=== PATIENT | male | born 1990 | race Caucasian/White ===

== ENCOUNTER 2017-12-14 20:22 | Inpatient (IN) | payer BC ==
[2017-12-14] MEDS ORDERED: ONDANSETRON 4 MG/2 ML VIAL IVP STA (20:47)
[2017-12-14] MEDS ORDERED: SODIUM CHLORIDE 0.9% 1,000 ML IV STA (20:47)
[2017-12-14] MEDS ORDERED: PANTOPRAZOLE 40 MG/10 ML VIAL IVP ONE (20:48)
[2017-12-14 21:06] LABS: Basophils # (A) 0.1 k/uL (0-0.2); Basophils % (A) 0 %; Eosinophils # (A) 0.3 k/uL (0-0.7); Eosinophils % (A) 3 %; HCT 42.5 % (39.0-53.0); Lymphocytes % (A) 26 %; MCH 29.3 pg (25.0-35.0); MCHC 32.9 g/dL (31.0-37.0); MCV 89.1 fL (80.0-100.0); Mean Platelet Volume 6.7; Monocytes # (A) 0.6 k/uL (0-1.0); Monocytes % (A) 5 %; Neutrophils # (A) 7.4 k/uL (1.3-7.7); Neutrophils % (A) 64 %; Platelet Count 293 k/uL (150-450); RBC 4.77 m/uL (4.30-5.90); RDW 13.5 % (11.5-15.5); WBC 11.6 k/uL (3.8-10.6)
[2017-12-14 21:20] LABS: ALT 34 U/L (21-72); AST 26 U/L (17-59); Albumin 4.2 g/dL (3.5-5.0); Alkaline Phosphatase 49 U/L (38-126); Anion Gap 11 mmol/L; Blood Urea Nitrogen 28 mg/dL (9-20); Calcium 9.4 mg/dL (8.4-10.2); Carbon Dioxide 23 mmol/L (22-30); Chloride 109 mmol/L (98-107); Glucose 133 mg/dL (74-99); Lipase 196 U/L (23-300); Potassium 4.5 mmol/L (3.5-5.1); Sodium 143 mmol/L (137-145); Total Protein 6.6 g/dL (6.3-8.2)
[2017-12-14 21:21] LABS: INR 1.1 (<1.2); Prothrombin Time 10.9 sec (9.0-12.0)
[2017-12-14 21:26] LABS: Partial Thromboplastin Time 19.6 sec (22.0-30.0)
--- NOTE | 2017-12-14 21:52 | ED ---
General Adult HPI - General Chief complaint: Nausea/Vomiting/Diarrhea Stated complaint: vomiting/left arm pain Time Seen by Provider: 12/14/17 20:47 Source: patient Mode of arrival: ambulatory Limitations: no limitations - History of Present Illness Initial comments: Fernando is a previously healthy 27-year-old male who presents the emergency department today for evaluation of 3 episodes of dark black stool and 3 episodes of dark vomitus. Patient reports that he was in his usual state of health throughout the day today, he ate a hamburger for lunch and then was taking a nap when he woke up with a sudden urge to have a bowel movement. Patient reports that he had a bowel movement that he noted was very dark in color, he subsequently became nauseated and vomited he also noted this vomitus was very dark and coffee ground like. Patient reports that he has had 3 dark stools and 3 episodes of dark vomitus since onset. Patient denies any abdominal pain, lightheadedness, palpitations, near syncope. Patient has no history of any GI pathology. He is not on any anticoagulant medication. Patient does report that he takes aspirin most days of the week, he states that he takes one to 2 pills of aspirin for headache. Patient has no history of ulcers or gastritis in the past. He has never been seen by GI or had endoscopy or colonoscopy. He has no known family history of any liver disease, bowel disease or clotting disease. - Related Data Home Medications Medication Instructions Recorded Confirmed Aspirin [Adult Low Dose Aspirin EC] 81 mg PO DAILY 12/14/17 12/14/17 Allergies Allergy/AdvReac Type Severity Reaction Status Date / Time No Known Allergies Allergy Verified 12/14/17 20:44 Review of Systems ROS Statement: Those systems with pertinent positive or pertinent negative responses have been documented in the HPI. ROS Other: All systems not noted in ROS Statement are negative. Past Medical History Past Medical History: No Reported History History of Any Multi-Drug Resistant Organisms: None Reported Past Surgical History: No Surgical Hx Reported Past Psychological History: No Psychological Hx Reported Smoking Status: Never smoker Past Alcohol Use History: None Reported Past Drug Use History: None Reported General Exam - General Exam Comments Initial Comments: GENERAL: Patient is well-developed and well-nourished. Patient is nontoxic and well- hydrated and is in mild distress, patient is anxious appearing and diaphoretic. HENT: Normocephalic, Atraumatic. Neck is soft and supple. No significant lymphadenopathy is noted. Oropharynx is clear. Moist mucous membranes. Neck has full range of motion without eliciting any pain. EYES: The sclera were anicteric and conjunctiva were pink and moist. Extraocular movements were intact and pupils were equal round and reactive to light. Eyelids were unremarkable. PULMONARY: Unlabored respirations. Good breath sounds bilaterally. No audible rales rhonchi or wheezing was noted. CARDIOVASCULAR: Tachycardia, regular, no murmurs rubs or gallops ABDOMEN: Soft and nontender with normal bowel sounds. SKIN: Skin is clear with no lesions or rashes and otherwise unremarkable. NEUROLOGIC: Patient is alert and oriented x3. Cranial nerves II through XII are grossly intact. Motor and sensory are also intact. Normal speech, volume and content. Symmetrical smile. MUSCULOSKELETAL: Normal extremities with adequate strength and full range of motion. No lower extremity swelling or edema. No calf tenderness. LYMPHATICS: No significant lymphadenopathy is noted PSYCHIATRIC: Normal psychiatric evaluation. Limitations: no limitations Limitations: no limitations Course Vital Signs 12/14/17 12/14/17 20:29 21:29 Temperature 98.3 F 98.7 F Pulse Rate 121 H 104 H Respiratory 24 18 Rate Blood Pressure 131/82 136/74 O2 Sat by Pulse 98 98 Oximetry EKG Findings - EKG Comments: EKG Findings:: EKG obtained at 2051, rate is 112, rhythm is sinus tachycardia, normal axis, normal intervals, no acute ST elevations or depressions. Acute ischemia or infarction. Medical Decision Making - Medical Decision Making The patient was seen and evaluated, history is obtained from the patient as well as mother bedside with no past medical history, does not see a doctor, no complaints prior to a sudden onset of dark vomiting and dark stools today. Patient had 3 episodes of each. On initial exam the patient appears quite anxious, he is diaphoretic and states that he has never been to the hospital before and is very scared. In addition the patient is noted to be mildly tachycardic. Labs and imaging were ordered Protonix IV fluids were ordered I return to the room to reevaluate the patient, I noted that his heart rate had improved to the low 90s, when I advised the patient that I needed to do a rectal exam headache and became very anxious, began sweating and his heart rate increased to the 120s. Mom at bedside states the patient has significant anxiety regarding medical care Rectal exam reveals a normal rectum with melanotic stools Guaiac was positive Labs reveal mild leukocytosis this is likely reactive, hemoglobin is stable at 14, BUN is mildly elevated which is consistent with an upper GI bleed This is a patient who takes aspirin almost daily, is having an upper GI bleed and some tachycardia. At this time I feel the patient warrants admission to the hospital. Admission orders with a consult to gastroenterology and twice a day Protonix were ordered. - Lab Data Result diagrams: 12/14/17 20:50 12/14/17 20:50 Lab Results 12/14/17 12/14/17 12/14/17 Range/Units 20:50 20:50 20:50 WBC 11.6 H (3.8-10.6) k/uL RBC 4.77 (4.30-5.90) m/uL Hgb 14.0 (13.0-17.5) gm/dL Hct 42.5 (39.0-53.0) % MCV 89.1 (80.0-100.0) fL MCH 29.3 (25.0-35.0) pg MCHC 32.9 (31.0-37.0) g/dL RDW 13.5 (11.5-15.5) % Plt Count 293 (150-450) k/uL Neutrophils % 64 % Lymphocytes % 26 % Monocytes % 5 % Eosinophils % 3 % Basophils % 0 % Neutrophils # 7.4 (1.3-7.7) k/uL Lymphocytes # 3.0 (1.0-4.8) k/uL Monocytes # 0.6 (0-1.0) k/uL Eosinophils # 0.3 (0-0.7) k/uL Basophils # 0.1 (0-0.2) k/uL PT 10.9 (9.0-12.0) sec INR 1.1 (<1.2) APTT 19.6 L (22.0-30.0) sec Sodium 143 (137-145) mmol/L Potassium 4.5 (3.5-5.1) mmol/L Chloride 109 H (98-107) mmol/L Carbon Dioxide 23 (22-30) mmol/L Anion Gap 11 mmol/L BUN 28 H (9-20) mg/dL Creatinine 1.00 (0.66-1.25) mg/dL Est GFR (CKD-EPI)AfAm >90 (>60 ml/min/1.73 sqM) Est GFR (CKD-EPI)NonAf >90 (>60 ml/min/1.73 sqM) Glucose 133 H (74-99) mg/dL Calcium 9.4 (8.4-10.2) mg/dL Total Bilirubin 1.0 (0.2-1.3) mg/dL AST 26 (17-59) U/L ALT 34 (21-72) U/L Alkaline Phosphatase 49 (38-126) U/L Total Protein 6.6 (6.3-8.2) g/dL Albumin 4.2 (3.5-5.0) g/dL Lipase 196 (23-300) U/L Urine Color Urine Appearance (Clear) Urine pH (5.0-8.0) Ur Specific [place] (1.001-1.035) Urine Protein (Negative) Urine Glucose (UA) (Negative) Urine Ketones (Negative) Urine Blood (Negative) Urine Nitrite (Negative) Urine Bilirubin (Negative) Urine Urobilinogen (<2.0) mg/dL Ur Leukocyte Esterase (Negative) Stool Occult Blood (Negative) 12/14/17 12/14/17 Range/Units 21:45 21:59 WBC (3.8-10.6) k/uL RBC (4.30-5.90) m/uL Hgb (13.0-17.5) gm/dL Hct (39.0-53.0) % MCV (80.0-100.0) fL MCH (25.0-35.0) pg MCHC (31.0-37.0) g/dL RDW (11.5-15.5) % Plt Count (150-450) k/uL Neutrophils % % Lymphocytes % % Monocytes % % Eosinophils % % Basophils % % Neutrophils # (1.3-7.7) k/uL Lymphocytes # (1.0-4.8) k/uL Monocytes # (0-1.0) k/uL Eosinophils # (0-0.7) k/uL Basophils # (0-0.2) k/uL PT (9.0-12.0) sec INR (<1.2) APTT (22.0-30.0) sec Sodium (137-145) mmol/L Potassium (3.5-5.1) mmol/L Chloride (98-107) mmol/L Carbon Dioxide (22-30) mmol/L Anion Gap mmol/L BUN (9-20) mg/dL Creatinine (0.66-1.25) mg/dL Est GFR (CKD-EPI)AfAm (>60 ml/min/1.73 sqM) Est GFR (CKD-EPI)NonAf (>60 ml/min/1.73 sqM) Glucose (74-99) mg/dL Calcium (8.4-10.2) mg/dL Total Bilirubin (0.2-1.3) mg/dL AST (17-59) U/L ALT (21-72) U/L Alkaline Phosphatase (38-126) U/L Total Protein (6.3-8.2) g/dL Albumin (3.5-5.0) g/dL Lipase (23-300) U/L Urine Color Yellow Urine Appearance Clear (Clear) Urine pH 7.5 (5.0-8.0) Ur Specific [place] 1.022 (1.001-1.035) Urine Protein Trace H (Negative) Urine Glucose (UA) Negative (Negative) Urine Ketones 2+ H (Negative) Urine Blood Negative (Negative) Urine Nitrite Negative (Negative) Urine Bilirubin Negative (Negative) Urine Urobilinogen <2.0 (<2.0) mg/dL Ur Leukocyte Esterase Negative (Negative) Stool Occult Blood Positive (Negative) Disposition Clinical Impression: Melena, Tachycardia Disposition: ADMITTED IP TO [facility] Referrals: None,Stated [Primary Care Provider] - 1-2 days Decision Time: 22:45
[2017-12-14 21:53] LABS: Appearance,Urine Clear (Clear); Bilirubin,Urine Negative (Negative); Blood,Urine Negative (Negative); Color,Urine Yellow; Glucose,Urine (UA) Negative (Negative); Ketones,Urine 2+ (Negative); Leukocyte Esterase,Urine Negative (Negative); Nitrite,Urine Negative (Negative); PH, Urine 7.5 (5.0-8.0); Protein,Urine Trace (Negative); Specific Gravity,Urine 1.022 (1.001-1.035); Urobilinogen,Urine <2.0 mg/dL (<2.0)
--- NOTE | 2017-12-14 21:53 | XR ---
EXAMINATION TYPE: XR KUB DATE OF EXAM: 12/14/2017 COMPARISON: NONE HISTORY: Vomiting TECHNIQUE: 2 views FINDINGS: Bowel gas pattern is normal. There is no sign of intestinal obstruction or pneumoperitoneum . Fecal pattern is normal. There are no pathologic calcifications. IMPRESSION: Nonacute abdomen.
[2017-12-14] MEDS ORDERED: ONDANSETRON 4 MG/2 ML VIAL IVP PRN (22:32)
[2017-12-14] MEDS ORDERED: NALOXONE 0.4 MG/ML 1 ML VIAL IV PRN (22:32)
[2017-12-14] MEDS: SODIUM CHLORIDE 0.9% 1,000 ML IV SCH (23:31)
[2017-12-14] MEDS ORDERED: LORazepam 2 MG/ML INJ IV PRN (23:40)
[2017-12-15 00:11] VITALS: BMI 35.0
[2017-12-15] MEDS: SODIUM CHLORIDE 0.9% 1,000 ML IV SCH ×3 (08:00→19:40)
[2017-12-15 08:22] LABS: Basophils % (A) 1 %; Eosinophils # (A) 0.1 k/uL (0-0.7); Eosinophils % (A) 1 %; HCT 36.7 % (39.0-53.0); HGB 12.2 gm/dL (13.0-17.5); Lymphocytes # (A) 1.5 k/uL (1.0-4.8); Lymphocytes % (A) 22 %; MCH 29.6 pg (25.0-35.0); MCHC 33.1 g/dL (31.0-37.0); MCV 89.5 fL (80.0-100.0); Mean Platelet Volume 7.1; Monocytes # (A) 0.5 k/uL (0-1.0); Monocytes % (A) 7 %; Neutrophils # (A) 4.5 k/uL (1.3-7.7); Neutrophils % (A) 68 %; Platelet Count 243 k/uL (150-450); RDW 13.4 % (11.5-15.5); WBC 6.6 k/uL (3.8-10.6)
[2017-12-15 08:36] LABS: ALT 30 U/L (21-72); AST 19 U/L (17-59); Albumin 3.4 g/dL (3.5-5.0); Alkaline Phosphatase 43 U/L (38-126); Anion Gap 7 mmol/L; Blood Urea Nitrogen 28 mg/dL (9-20); Calcium 8.5 mg/dL (8.4-10.2); Carbon Dioxide 25 mmol/L (22-30); Chloride 109 mmol/L (98-107); Glucose 88 mg/dL (74-99); Potassium 4.1 mmol/L (3.5-5.1); Sodium 141 mmol/L (137-145); Total Protein 5.6 g/dL (6.3-8.2)
[2017-12-15] MEDS: PANTOPRAZOLE 40 MG/10 ML VIAL IVP SCH ×2 (11:50→20:45)
--- NOTE | 2017-12-15 14:45 | P.HPIM ---
History of Present Illness H&P Date: 12/15/17 Chief Complaint: Dark-colored stools Patient is a 37-year-old male without significant past medical history came to the hospital with complaints of black-colored stools and also dark-colored vomitus past 1 day. Patient says that he had 3 episodes since yesterday. Patient reports that he was in his usual state of health throughout the day today, he ate a hamburger for lunch and then was taking a nap when he woke up with a sudden urge to have a bowel movement. Patient reports that he had a bowel movement that he noted was very dark in color, he subsequently became nauseated and vomited he also noted this vomitus was very dark and coffee ground like. Patient denies any abdominal pain, lightheadedness, palpitations, near syncope. Patient does have dizziness. Patient does report that he takes aspirin most days of the week, he states that he takes one to 2 pills of aspirin for headache. Denied any other over-the- counter pain medication use. Patient has no history of ulcers or gastritis in the past. He has never been seen by GI or had endoscopy or colonoscopy. He has no known family history of any liver disease, bowel disease or clotting disease. Hemoglobin was 14.0 on admission dropped to 12.2 today. Patient is tachycardic and FOBT positive on admission. Review of Systems Constitutional: Patient denies any fever or chills . No generalized weakness or weight loss. Abdomen: Denied any nausea. 3 episodes of vomiting. Dark-colored stools. No abdominal pain. Cardiovascular: Patient denies any chest pain or short of breath no palpitations. Respiratory: patient denied any cough is from production. No shortness of breath Neurologic: Patient denied any numbness or tingling headache. Dizziness. Musculoskeletal: Patient denies any complaints of joint swelling or deformity. Skin: Negative Psychiatric: Negative Endocrine: No heat or cold intolerance. No recent weight gain. Genitourinary: No dysuria or hematuria. All other 14 point ROS negative except the above Past Medical History Past Medical History: No Reported History History of Any Multi-Drug Resistant Organisms: None Reported Past Surgical History: No Surgical Hx Reported Additional Past Surgical History / Comment(s): Plastic surgery to R ear because of a dog bite, about 26 years ago. Past Anesthesia/Blood Transfusion Reactions: Unable to Obtain Past Psychological History: No Psychological Hx Reported Smoking Status: Never smoker Past Alcohol Use History: Rare Additional Past Alcohol Use History / Comment(s): Patient states he occassionaly has a drink. Past Drug Use History: None Reported - Past Family History Mother Family Medical History: Diabetes Mellitus Additional Family Medical History / Comment(s): Tubal, knee, gallbladder and foot surgery. Grandfather Family Medical History: Cancer Additional Family Medical History / Comment(s): Colon cancer Grandmother Family Medical History: CVA/TIA Additional Family Medical History / Comment(s): 2 strokes Medications and Allergies Home Medications Medication Instructions Recorded Confirmed Type Aspirin [Adult Low Dose Aspirin EC] 81 mg PO DAILY 12/14/17 12/14/17 History Allergies Allergy/AdvReac Type Severity Reaction Status Date / Time No Known Allergies Allergy Verified 12/14/17 20:44 Physical Exam Vitals: Vital Signs Temp Pulse Pulse Resp BP BP Pulse Ox 12/15/17 06:59 98.9 F 102 H 14 130/68 96 12/15/17 04:37 98.2 F 101 H 15 109/74 99 12/14/17 23:43 98.1 F 93 16 142/67 99 12/14/17 23:35 98.6 F 100 18 120/65 96 12/14/17 21:29 98.7 F 104 H 18 136/74 98 12/14/17 20:29 98.3 F 121 H 24 131/82 98 Intake and Output 12/14/17 12/15/17 12/15/17 22:59 06:59 14:59 Intake Total 750 Balance 750 Intake: Intake, IV Titration 750 Amount Sodium Chloride 0.9% 1, 750 000 ml @ 125 mls/hr IV . Q8H [facility] Rx#:[id number] Other: Voiding Method Toilet # Voids 1 Weight 102.058 kg 104.5 kg PHYSICAL EXAMINATION: Patient is lying in the bed comfortably, no acute distress, awake alert and oriented.. HEENT: Normocephalic. Neck is supple. Pupils reactive. Nostrils clear. Oral cavity is moist. Ears reveal no drainage. Neck reveals no JVD, carotid bruits, or thyromegaly. CHEST EXAMINATION: Trachea is central. Symmetrical expansion. Lung villalta clear to auscultation and percussion. CARDIAC: Normal S1, S2 with no gallops. No murmurs ABDOMEN: Soft. Bowel sounds normal. No organomegaly. No abdominal bruits. Extremities: reveal no edema. No clubbing or cyanosis Neurologically awake, alert, oriented x3 with well-coordinated movements. No focal deficits noted Skin: No rash or skin lesions. Psychiatric: Coperative. Nonsuicidal Musculoskeletal: No joint swelling or deformity. Normal range of motion. Results CBC & Chem 7: 12/15/17 07:33 12/15/17 07:33 Labs: Abnormal Lab Results - Last 24 Hours (Table) 12/14/17 12/14/17 12/14/17 Range/Units 20:50 20:50 20:50 WBC 11.6 H (3.8-10.6) k/uL RBC (4.30-5.90) m/uL Hgb (13.0-17.5) gm/dL Hct (39.0-53.0) % APTT 19.6 L (22.0-30.0) sec Chloride 109 H (98-107) mmol/L BUN 28 H (9-20) mg/dL Glucose 133 H (74-99) mg/dL Total Protein (6.3-8.2) g/dL Albumin (3.5-5.0) g/dL Urine Protein (Negative) Urine Ketones (Negative) 12/14/17 12/15/17 12/15/17 Range/Units 21:45 07:33 07:33 WBC (3.8-10.6) k/uL RBC 4.10 L (4.30-5.90) m/uL Hgb 12.2 L (13.0-17.5) gm/dL Hct 36.7 L (39.0-53.0) % APTT (22.0-30.0) sec Chloride 109 H (98-107) mmol/L BUN 28 H (9-20) mg/dL Glucose (74-99) mg/dL Total Protein 5.6 L (6.3-8.2) g/dL Albumin 3.4 L (3.5-5.0) g/dL Urine Protein Trace H (Negative) Urine Ketones 2+ H (Negative) Thrombosis Risk Factor Assmnt - DVT/VTE Prophylaxis DVT/VTE Prophylaxis: Mechanical Prophylaxis ordered - Choose All That Apply Any of the Below Risk Factors Present?: No Assessment and Plan Assessment: Dark-colored stools due to acute GI bleed. Possibly upper GI Acute blood loss anemia Dizziness Aspirin intake for headache DVT prophylaxis with SCDs Plan: Patient will be continued on Protonix IV twice daily and IV fluids. Continue with nothing by mouth and GI was consulted. Patient may need EGD for further evaluate. Continue to follow closely. Time with Patient: Greater than 30
--- NOTE | 2017-12-15 23:46 | P.CONS ---
History of Present Illness - Reason for Consult Consult date: 12/15/17 Coffee-ground emesis Requesting physician: Alvarez Triplett - Chief Complaint Vomiting black blood - History of Present Illness The patient is a pleasant 37-year-old male without any significant past medical history who presented to the hospital for evaluation of 1 day of melena and coffee-ground emesis. Per the patient he had 3 dark black bowel movements with no bright red blood noted. He reports that typical bowel movements for him occur daily with no hematochezia or melena noted. He also reports 3 episodes of dark colored vomit. Again he denies any bright red blood with the vomit. He denies any prior episodes similar to this in the past. The patient reports taking aspirin occasionally for headaches but denies daily use of aspirin or NSAID medications. He is not on blood thinners. He has no prior EGD or colonoscopy. She reports associated lightheadedness, palpitations and an electric feeling in his left arm. Patient does not use iron supplementation or Pepto-Bismol hemoglobin on presentation was 14.0 and subsequently found to be 12.2. BUN on presentation was 28. Past endoscopic history: Denies Review of Systems Constitutional: Denies any fatigue, change in weight Eyes: Denies any change in vision, pain denies Nose: Denies any congestion, rhinorrhea Ears: Denies any change in hearing, new onset tinnitus Lungs: Denies any wheezing, shortness of breath, cough, or hemoptysis Cardiac: Denies any pain in chest, shortness of breath, lower extremity swelling , the patient does report palpitations Abdomen: As per history of present illness Skin: Denies any new rashes or pruritus Urine: Denies any dysuria or hematuria Neuro: Denies any change in mental status, new focal deficits. He did have a shock-like sensation down his left arm prior to presentation. Past Medical History Past Medical History: No Reported History History of Any Multi-Drug Resistant Organisms: None Reported Past Surgical History: No Surgical Hx Reported Additional Past Surgical History / Comment(s): Plastic surgery to R ear because of a dog bite, about 26 years ago. Past Anesthesia/Blood Transfusion Reactions: Unable to Obtain Past Psychological History: No Psychological Hx Reported Smoking Status: Never smoker Past Alcohol Use History: Rare Additional Past Alcohol Use History / Comment(s): Patient states he occassionaly has a drink. Past Drug Use History: None Reported - Past Family History Mother Family Medical History: Diabetes Mellitus Additional Family Medical History / Comment(s): Tubal, knee, gallbladder and foot surgery. Grandfather Family Medical History: Cancer Additional Family Medical History / Comment(s): Colon cancer Grandmother Family Medical History: CVA/TIA Additional Family Medical History / Comment(s): 2 strokes Medications and Allergies Home Medications Medication Instructions Recorded Confirmed Type Aspirin [Adult Low Dose Aspirin EC] 81 mg PO DAILY 12/14/17 12/14/17 History Allergies Allergy/AdvReac Type Severity Reaction Status Date / Time No Known Allergies Allergy Verified 12/14/17 20:44 Physical Exam Vitals: Vital Signs Temp Pulse Resp BP Pulse Ox 12/15/17 21:00 98.1 F 87 18 96/55 96 12/15/17 16:00 106 H 16 12/15/17 14:35 97.6 F 106 H 16 122/67 98 12/15/17 12:26 98.0 F 89 16 139/78 97 12/15/17 10:57 98.1 F 92 20 132/67 97 12/15/17 08:00 88 14 12/15/17 06:59 98.9 F 102 H 14 130/68 96 12/15/17 04:37 98.2 F 101 H 15 109/74 99 Intake and Output 12/15/17 12/15/17 12/16/17 14:59 22:59 06:59 Intake Total 0 Balance 0 Intake: Oral 0 Other: Voiding Method Toilet Toilet # Voids 2 2 Constitutional: Lying in bed in no apparent distress Head: normocephalic/atraumatic Eyes: No icterus, no injection Mouth: Moist mucous membranes Nose: No discharge noted Neck: Trachea midline Lungs: Normal air entry in all lung villalta, no wheezing appreciated Abdomen: Soft, nontender, nondistended, normal bowel sounds. No guarding or rigidity Skin: No rashes, no jaundice Neuro: Awake alert and oriented 3, no focal deficits Results CBC & Chem 7: 12/15/17 07:33 12/15/17 07:33 Labs: Abnormal Lab Results - Last 24 Hours (Table) 12/15/17 12/15/17 Range/Units 07:33 07:33 RBC 4.10 L (4.30-5.90) m/uL Hgb 12.2 L (13.0-17.5) gm/dL Hct 36.7 L (39.0-53.0) % Chloride 109 H (98-107) mmol/L BUN 28 H (9-20) mg/dL Total Protein 5.6 L (6.3-8.2) g/dL Albumin 3.4 L (3.5-5.0) g/dL Assessment and Plan (1) Melena Narrative/Plan: Patient presenting with complaints of 3 episodes of melena and 3 episodes of coffee-ground emesis. Subsequently found to have full in hemoglobin from 14 to 12.2. The patient denies any history of peptic ulcer disease. He does take aspirin as needed for headaches. Denies any daily use of NSAIDs or blood thinners. Current Visit: Yes Status: Acute Code(s): K92.1 - MELENA SNOMED Code(s): 2778793 (2) Anemia, blood loss Narrative/Plan: Secondary to above Current Visit: Yes Status: Acute Code(s): D50.0 - IRON DEFICIENCY ANEMIA SECONDARY TO BLOOD LOSS (CHRONIC) SNOMED Code(s): 498445984 Plan: Supportive care Protonix IV twice a day Clear liquid diet and nothing by mouth after midnight Monitor hemoglobin and hematocrit and transfuse as needed Plan for EGD in the morning Avoid NSAID medications Further recommendations to follow Thank you for allowing us to persist it in the care of this patient, we will continue to follow.
[2017-12-16] MEDS: SODIUM CHLORIDE 0.9% 1,000 ML IV SCH ×2 (05:39→16:54)
[2017-12-16] MEDS: PANTOPRAZOLE 40 MG/10 ML VIAL IVP SCH (08:35)
[2017-12-16 11:43] LABS: Basophils % (A) 1 %; Eosinophils # (A) 0.1 k/uL (0-0.7); Eosinophils % (A) 2 %; HCT 35.5 % (39.0-53.0); HGB 11.8 gm/dL (13.0-17.5); Lymphocytes # (A) 1.7 k/uL (1.0-4.8); Lymphocytes % (A) 27 %; MCH 30.2 pg (25.0-35.0); MCHC 33.1 g/dL (31.0-37.0); MCV 91.2 fL (80.0-100.0); Mean Platelet Volume 6.5; Monocytes # (A) 0.3 k/uL (0-1.0); Monocytes % (A) 5 %; Neutrophils # (A) 4.1 k/uL (1.3-7.7); Neutrophils % (A) 66 %; Platelet Count 204 k/uL (150-450); RDW 13.4 % (11.5-15.5); WBC 6.3 k/uL (3.8-10.6)
[2017-12-16] MEDS ORDERED: IV FLUID CONTINUATION 400 ML IV ONE (13:51)
[2017-12-16] MEDS ORDERED: LACTATED RINGERS 1,000 ML IV ONE (14:08)
--- NOTE | 2017-12-16 14:36 | P.PCN ---
Date of Procedure: 12/16/17 Description of Procedure: BRIEF HISTORY: Patient is a 27-year-old, pleasant, male with no significant past medical history who presented to the hospital with coffee-ground emesis and melena. The patient reports having 3 episodes of coffee-ground emesis and 3 episodes of black tarry stools prior to presentation. He was found to be anemic. He does report occasional aspirin use for treatment of headaches.. PROCEDURE PERFORMED: Esophagogastroduodenoscopy. PREOPERATIVE DIAGNOSIS: Melena, coffee-ground emesis, anemia. IV sedation per anesthesia. PROCEDURE: After informed consent was obtained, the patient was brought into the endoscopy unit. IV sedation was administered by Anesthesia under continuous monitoring. Initially the Olympus GIF-190 video endoscope was inserted into the mouth. Esophagus intubated without any difficulty. It was gradually advanced into the stomach and duodenum and carefully examined. The bulb and the second part of the duodenum appeared normal. The scope at this time was withdrawn to the stomach, adequately insufflated with air, and upon careful examination, mucosa of the antrum, body, cardia and the fundus. A large 1 cm cratered ulcer was noted in the antrum of the stomach, without any high risk stigmata (no active bleeding, visible vessel or clot). Biopsies were taken at the edge of the ulcer. The scope was then withdrawn into the esophagus. The GE junction was located at 35 cm from the incisors. The esophagus appeared normal. There were no erosions or ulcerations seen and the patient tolerated the procedure well. IMPRESSION: 1. Large nonbleeding cratered ulcer of the gastric antrum biopsied. 2. No other pathology noted. RECOMMENDATIONS: The findings of this examination were discussed with the patient and his family. The patient will need to continue on Protonix 40 mg twice a day indefinitely. Follow-up with gastroenterology in 2 weeks with repeat EGD in 6-8 weeks to check for healing. Continue to avoid NSAID use. Okay for full liquid diet.
[2017-12-16] MEDS: PANTOPRAZOLE 40 MG TABLET PO SCH (16:56)
[2017-12-16 22:33] VITALS: RESP 18
--- NOTE | 2017-12-16 23:26 | P.PN ---
Subjective Progress Note Date: 12/16/17 Principal diagnosis: Acute GI bleed Patient is a 37-year-old male without significant past medical history came to the hospital with complaints of black-colored stools and also dark-colored vomitus past 1 day. Patient says that he had 3 episodes since yesterday. Patient reports that he was in his usual state of health throughout the day today, he ate a hamburger for lunch and then was taking a nap when he woke up with a sudden urge to have a bowel movement. Patient reports that he had a bowel movement that he noted was very dark in color, he subsequently became nauseated and vomited he also noted this vomitus was very dark and coffee ground like. Patient denies any abdominal pain, lightheadedness, palpitations, near syncope. Patient does have dizziness. Patient does report that he takes aspirin most days of the week, he states that he takes one to 2 pills of aspirin for headache. Denied any other over-the- counter pain medication use. Patient has no history of ulcers or gastritis in the past. He has never been seen by GI or had endoscopy or colonoscopy. He has no known family history of any liver disease, bowel disease or clotting disease. Hemoglobin was 14.0 on admission dropped to 12.2 today. Patient is tachycardic and FOBT positive on admission. 12/16/2017 Patient denied any hematemesis. Patient had EGD showed. Large nonbleeding cratered ulcer of the gastric antrum biopsied. Otherwise patient will be continued on PPI twice a day and started on clear liquid diet, advance as tolerated. No fever no chills. Hemoglobin is fairly stable. Anticipate discharge in next 24 hours. Objective - Vital Signs Vital signs: Vital Signs Temp 97.5 F L 12/16/17 05:00 Pulse 95 12/16/17 08:00 Resp 16 12/16/17 08:00 BP 111/59 12/16/17 05:00 Pulse Ox 98 12/16/17 05:00 Intake & Output 12/15/17 12/16/17 12/16/17 18:59 06:59 18:59 Intake Total 0 980 450 Balance 0 980 450 Intake: IV 450 Intake, IV Titration 500 Amount Sodium Chloride 0.9% 1, 500 000 ml @ 125 mls/hr IV . Q8H [facility] Rx#:[id number] Oral 0 480 0 Other: Voiding Method Toilet Toilet Toilet # Voids 2 2 2 - Exam PHYSICAL EXAMINATION: Patient is lying in the bed comfortably, no acute distress, awake alert and oriented.. HEENT: Normocephalic. Neck is supple. Pupils reactive. Nostrils clear. Oral cavity is moist. Ears reveal no drainage. Neck reveals no JVD, carotid bruits, or thyromegaly. CHEST EXAMINATION: Trachea is central. Symmetrical expansion. Lung villalta clear to auscultation and percussion. CARDIAC: Normal S1, S2 with no gallops. No murmurs ABDOMEN: Soft. Bowel sounds normal. No organomegaly. No abdominal bruits. Extremities: reveal no edema. No clubbing or cyanosis Neurologically awake, alert, oriented x3 with well-coordinated movements. No focal deficits noted Skin: No rash or skin lesions. Psychiatric: Coperative. Nonsuicidal Musculoskeletal: No joint swelling or deformity. Normal range of motion. - Labs CBC & Chem 7: 12/16/17 11:12 12/15/17 07:33 Labs: Abnormal Lab Results - Last 24 Hours (Table) 12/16/17 Range/Units 11:12 RBC 3.90 L (4.30-5.90) m/uL Hgb 11.8 L (13.0-17.5) gm/dL Hct 35.5 L (39.0-53.0) % Assessment and Plan Assessment: Dark-colored stools due to acute GI bleed. upper GI Acute blood loss anemia Large nonbleeding cratered ulcer of the gastric antrum. Follow-up biopsy report. Dizziness Aspirin intake for headache DVT prophylaxis with SCDs Plan: Patient will be continued on Protonix IV twice daily--change to twice a day orally. Started on clear liquid diet and advance as tolerated. GI is following. Status post EGD. Continue to follow closely. Time with Patient: Greater than 30
[2017-12-17] MEDS: SODIUM CHLORIDE 0.9% 1,000 ML IV SCH ×2 (02:24→08:16)
[2017-12-17 06:14] VITALS: BP 124/63; PULSE 80; TEMP 97.1
[2017-12-17] MEDS: PANTOPRAZOLE 40 MG TABLET PO SCH (08:16)
[2017-12-17 08:24] LABS: Basophils % (A) 1 %; Eosinophils # (A) 0.1 k/uL (0-0.7); Eosinophils % (A) 2 %; HCT 35.3 % (39.0-53.0); HGB 11.8 gm/dL (13.0-17.5); Lymphocytes # (A) 1.3 k/uL (1.0-4.8); Lymphocytes % (A) 28 %; MCH 30.3 pg (25.0-35.0); MCHC 33.3 g/dL (31.0-37.0); MCV 90.9 fL (80.0-100.0); Mean Platelet Volume 6.7; Monocytes # (A) 0.4 k/uL (0-1.0); Monocytes % (A) 7 %; Neutrophils # (A) 2.9 k/uL (1.3-7.7); Neutrophils % (A) 61 %; Platelet Count 218 k/uL (150-450); RBC 3.89 m/uL (4.30-5.90); RDW 13.5 % (11.5-15.5); WBC 4.8 k/uL (3.8-10.6)
--- NOTE | 2017-12-17 11:47 | P.DS ---
Providers Date of admission: 12/14/17 22:32 Expected date of discharge: 12/17/17 Attending physician: Alvarez Phillips Consults: 12/14/17 22:33 Consult Physician Urgent Consulting Provider: Cedrick Coleman Consult Reason/Comments: melena Do you want consulting provider notified?: Yes Primary care physician: Stated None Jatin Hospital Course: Final Diagnoses: Dark-colored stools due to acute GI bleed. upper GI Acute blood loss anemia Large nonbleeding cratered ulcer of the gastric antrum. Follow-up biopsy report. Dizziness Aspirin intake for headache DVT prophylaxis with SCDs Hospital course: Patient is a 37-year-old male without significant past medical history came to the hospital with complaints of black-colored stools and also dark-colored vomitus past 1 day. Patient says that he had 3 episodes since yesterday. Patient reports that he was in his usual state of health throughout the day today, he ate a hamburger for lunch and then was taking a nap when he woke up with a sudden urge to have a bowel movement. Patient reports that he had a bowel movement that he noted was very dark in color, he subsequently became nauseated and vomited he also noted this vomitus was very dark and coffee ground like. Patient denies any abdominal pain, lightheadedness, palpitations, near syncope. Patient does have dizziness. Patient does report that he takes aspirin most days of the week, he states that he takes one to 2 pills of aspirin for headache. Denied any other over-the- counter pain medication use. Patient has no history of ulcers or gastritis in the past. He has never been seen by GI or had endoscopy or colonoscopy. He has no known family history of any liver disease, bowel disease or clotting disease. Hemoglobin was 14.0 on admission dropped to 12.2 today. Patient is tachycardic and FOBT positive on admission. Evaluated by GI, underwent EGD .EGD reported Large nonbleeding cratered ulcer of the gastric antrum biopsied. Maintained on PPI twice a day. Significant clinical improvement. Cleared by GI for discharge. Patient is being discharged home in a stable condition with guarded prognosis. Exam PHYSICAL EXAMINATION: Patient - no acute distress, awake alert and oriented.. CHEST EXAMINATION: Trachea is central. Symmetrical expansion. Lung villalta clear to auscultation and percussion. CARDIAC: Normal S1, S2 with no gallops. No murmurs ABDOMEN: Soft. Bowel sounds normal. No organomegaly. No abdominal bruits. Neurologically No focal deficits noted The impression and plan of care has been dictated as directed. : I performed a history and examination of this patient, discussed the same with the dictator. I agree with the dictator's note ,documented as a scribe. Any additional findings or plans will be noted. Time taken: 35 minutes Patient Condition at Discharge: Stable Plan - Discharge Summary Discharge Rx Participant: No New Discharge Prescriptions: New Pantoprazole [Protonix] 40 mg PO AC-BID #60 tablet. Discontinued Aspirin [Adult Low Dose Aspirin EC] 81 mg PO DAILY Discharge Medication List Pantoprazole [Protonix] 40 mg PO AC-BID #60 tablet. 12/17/17 [Rx] Follow up Appointment(s)/Referral(s): Steven Steiner MD [REFERRING] - 3 Days Jeff Louise MD [STAFF PHYSICIAN] - 2 Weeks Ambulatory/Diagnostic Orders: Complete Blood Count w/diff [LAB.AMB] Time Frame: 3 Days, Location: None Selected Activity/Diet/Wound Care/Special Instructions: No NSAIDs Diet: Soft bland
== END 2017-12-17 12:20 | disposition home or self-care (01) | DRG 378 ==
LOC: EC 20:22 → 5MS5E 22:32
PROVIDERS: ADMIT Internal Medicine; ATTEND Internal Medicine
PROC: 0DB78ZX Excision of Stomach, Pylorus, Via Natural or Artificial Opening Endoscopic, Diagnostic (ICD-10-PCS; principal; 2017-12-14)
DX: K92.1 Melena (principal); D62 Acute posthemorrhagic anemia; D72.829 Elevated white blood cell count, unspecified; F41.9 Anxiety disorder, unspecified; M79.602 Pain in left arm; R00.0 Tachycardia, unspecified; R42 Dizziness and giddiness; R51 Headache; K25.9 Gastric ulcer, unspecified as acute or chronic, without hemorrhage or perforation; Z79.82 Long term (current) use of aspirin; Z80.0 Family history of malignant neoplasm of digestive organs; Z82.3 Family history of stroke; Z83.3 Family history of diabetes mellitus
CPT/HCPCS: 36415; 43239; 74018; 80053; 81003; 82272; 83690; 85025; 85610; 85730; 86850; 86900; 86901; 88305; 93005; 96361; 96374; 96375; 99285

== ENCOUNTER 2018-02-11 10:12 | Day surgery (SDC) | payer BC ==
[2018-02-08 16:10] VITALS: BMI 34.2
[~2018-02-11 10:12] MED LIST: LACTATED RINGERS 1,000 ML IV SCH
[2018-02-11 10:50] VITALS: TEMP 98.1
[2018-02-11] MEDS ORDERED: LIDOCAINE 1% 20 ML VIAL (10MG/ML) FOR IV START INTRADERMA ONE (10:55)
[2018-02-11] MEDS ORDERED: PROPOFOL 10 MG/ML 20 ML VIAL IV ONE (12:21)
[2018-02-11] MEDS ORDERED: LIDOCAINE 1% INJ 10MG/ML (20 ML MDV) ONE (12:21)
--- NOTE | 2018-02-11 12:49 | P.PCN ---
Date of Procedure: 02/11/18 Description of Procedure: BRIEF HISTORY: Patient is a 27-year-old, pleasant, male patient who presents for outpatient EGD for follow-up of a large cratered antral ulcer diagnosed when patient presented to the hospital with complaints of melena and was found to be anemic. The patient was taking Protonix twice daily up until 2 weeks ago when he ran out of his prescription. Otherwise he is seen no signs or symptoms of further GI bleeding.. PROCEDURE PERFORMED: Esophagogastroduodenoscopy with biopsy. PREOPERATIVE DIAGNOSIS: Follow-up of gastric ulcer seen on endoscopy. ESTIMATED BLOOD LOSS: Minimal. IV sedation per anesthesia. PROCEDURE: After informed consent was obtained, the patient was brought into the endoscopy unit. IV sedation was administered by Anesthesia under continuous monitoring. Initially the Olympus GIF-190 video endoscope was inserted into the mouth. Esophagus intubated without any difficulty. It was gradually advanced into the stomach and duodenum and carefully examined. The bulb and the second part of the duodenum appeared normal. The scope at this time was withdrawn to the stomach, adequately insufflated with air, and upon careful examination, mucosa of the antrum, body, cardia and the fundus appeared grossly normal except for a focal area in the antrum of the patient's previously seen gastric ulcer which was erythematous and edematous. Overall the area is improved from prior examination and represents a healing ulcer. The scope was then withdrawn into the esophagus. The GE junction was located at 35 cm from the incisors. Small hiatal hernia noted on retroflexion in the stomach The esophagus appeared normal. There were no erosions or ulcerations seen and the patient tolerated the procedure well. IMPRESSION: 1. Healing antral ulcer. 2. Small hiatal hernia. RECOMMENDATIONS: The findings of this examination were discussed with the patient and his mother. At this time would recommend 2 additional months of Protonix therapy. After which the patient can wean himself from PPI. Continue to monitor for signs and symptoms of GI bleed. Continue to avoid NSAID use. Follow up with gastroenterology as needed.
[2018-02-11 13:01] VITALS: BP 153/91; PULSE 82; RESP 18
--- NOTE | 2018-02-15 11:17 | CDI ---
Outpatient Documentation Clarification Form Date: 02/15/18 CDS/Travel [employer]ota Name: Shilpa Holguin Phone: If any questions, call Amy Taylor Spring Tacker at [phone] Patient Name: Fernando Mckeon Admit Date: 02/11/18 Discharge Date: 02/11/18 ATTENTION: The [facility] Coding Staff appreciate your assistance in clarifying documentation. Please respond to the clarification below the line at the bottom and electronically sign. The [facility] Coding staff will review the response and follow-up if needed. Please note: Queries are made part of the Legal Health Record. If you have any questions, please contact the Spring Tacker. Dear Dr. Louise, The title of your procedure and the path report both indicate that a biopsy was performed. The detailed description on the Op report do not describe a biopsy being performed. Was a biopsy performed? If so, please describe it in detail ( such as the method and location). Thank you for your kind consideration. MTDD
--- NOTE | 2018-02-22 17:12 | CDI ---
Outpatient Documentation Clarification Form Date: 02/22/18 CDS/Mortgage Loan Processor Name: Shilpa Holguin Phone: If any questions, call Amy Taylor Stretch Machine Operator at [phone] Patient Name: Fernando Mckeon Admit Date: 02/11/18 Discharge Date: 02/11/18 ATTENTION: The [facility] Coding Staff appreciate your assistance in clarifying documentation. Please respond to the clarification below the line at the bottom and electronically sign. The [facility] Coding staff will review the response and follow-up if needed. Please note: Queries are made part of the Legal Health Record. If you have any questions, please contact the Stretch Machine Operator. 2nd query request Dear Dr. Louise, The title of your procedure and the path report both indicate that a biopsy was performed. The detailed description on the Op report do not describe a biopsy being performed. Was a biopsy performed? If so, please describe it in detail ( such as the method and location). Thank you for your kind consideration. An addendum was added to the report. Thanks ROOSE[place]ELT
--- NOTE | 2018-03-03 11:27 | CDI ---
Outpatient Documentation Clarification Form Date: 03/03/18 CDS/Sign Maintenance Name: Shilpa Holguin Phone: If any questions, call Amy Taylor [employer] Consultant at [phone] Patient Name: Fernando Mckeon Admit Date: 02/11/18 Discharge Date: 02/11/18 ATTENTION: The [facility] Coding Staff appreciate your assistance in clarifying documentation. Please respond to the clarification below the line at the bottom and electronically sign. The [facility] Coding staff will review the response and follow-up if needed. Please note: Queries are made part of the Legal Health Record. If you have any questions, please contact the [employer] Consultant. 3rd query request Dear Dr. Louise, The title of your procedure and the path report both indicate that a biopsy was performed. The detailed description on the Op report do not describe a biopsy being performed. Was a biopsy performed? If so, please describe it in detail ( such as the method and location). Thank you for your kind consideration. Addendum added to the reports to specify location of biopsy, thanks ROOSEVELT
== END 2018-02-11 13:11 | disposition home or self-care (01) ==
LOC: ORWHC2ENDO 10:12
PROVIDERS: ATTEND Internal Medicine
DX: K29.50 Unspecified chronic gastritis without bleeding (principal); K25.9 Gastric ulcer, unspecified as acute or chronic, without hemorrhage or perforation; K44.9 Diaphragmatic hernia without obstruction or gangrene; K21.9 Gastro-esophageal reflux disease without esophagitis; Z79.899 Other long term (current) drug therapy
CPT/HCPCS: 88305; 43239; J2001; J2704